=== PATIENT | male | born 1955 | race Caucasian/White ===

== ENCOUNTER 2023-01-13 06:29 | Day surgery (SDC) | payer MEDICARE, OTHER ==
[~2023-01-13 06:29] MED LIST: Lactated Ringers 1,000 ML IV SCH; Midazolam 1 MG/ML 2 ML SDV ONE; Propofol 200 MG/20 ML SDV ONE; Sodium Chloride 0.9% 10 ML Syringe FLUSH PRN; Sodium Chloride 0.9% 10 ML Syringe FLUSH SCH; fentaNYL 100 MCG/2 ML SDV ONE
[2023-01-13] MEDS ORDERED: Ropivacaine 0.5% 5 MG/ML 30 ML SDV ONE ×2 (07:20→08:40)
[2023-01-13] MEDS ORDERED: EPINEPHrine 1 MG/ML SDV ONE ×2 (07:20→08:39)
[2023-01-13] MEDS ORDERED: Phenylephrine 1% 10 MG/ML SDV ONE (07:35)
[2023-01-13] MEDS ORDERED: ceFAZolin 2 GM Vial ONE (07:35)
[2023-01-13] MEDS: Tranexamic Acid 1,000 MG/10 ML Vial ONE ×2 (08:01→08:34)
[2023-01-13] MEDS: Morphine 8 MG, EPINEPHrine 0.3 MG, Cefuroxime 750 MG, Ketorolac 30 MG, Sodium Chloride ... PRN ×10 (08:01→08:28)
[2023-01-13] MEDS: Vancomycin 1 GM SDV ONE ×2 (08:02→08:34)
[2023-01-13] MEDS ORDERED: Ondansetron 4 MG/2 ML SDV ONE (08:25)
[2023-01-13] MEDS ORDERED: Acetaminophen/HYDROcodone 325-5 MG Tab PO PRN (09:09)
== END 2023-01-13 12:10 | disposition home or self-care (01) ==
LOC: JD.SDS 06:29
PROVIDERS: ATTEND Orthopaedic Surgery
DX: M17.12 Unilateral primary osteoarthritis, left knee (principal); G89.29 Other chronic pain; N40.1 Benign prostatic hyperplasia with lower urinary tract symptoms; N13.8 Other obstructive and reflux uropathy; K74.60 Unspecified cirrhosis of liver; K70.10 Alcoholic hepatitis without ascites; F17.210 Nicotine dependence, cigarettes, uncomplicated; Z91.013 Allergy to seafood; Z88.0 Allergy status to penicillin; Z79.899 Other long term (current) drug therapy; Z79.01 Long term (current) use of anticoagulants
CPT/HCPCS: 0055T; 27447; 73560; 97116; 97161; A9270; C1713; C1776; J0171; J0690; J0697; J1885; J2250; J2270; J2370; J2405; J2704; J2795; J3370; J7120; 01402; 64447; J3010; J3490

== ENCOUNTER 2023-03-18 16:24 | Inpatient (IN) | payer MEDICARE, OTHER ==
[2023-03-18] MEDS ORDERED: Sodium Chloride 0.9% 1,000 ML IV STA (17:13)
[2023-03-18] MEDS ORDERED: Acetaminophen/HYDROcodone 325-5 MG Tab PO ONE (17:22)
[2023-03-18] MEDS ORDERED: Iopamidol 755 Mg/ML 100 ML Bottle IVPUSH ONE (18:26)
[2023-03-18] MEDS ORDERED: Sodium Chloride 0.9% 10 ML Syringe FLUSH PRN (18:26)
[2023-03-18] MEDS ORDERED: Sodium Chloride 0.9% 45 ML IV SCH (18:30)
[2023-03-18] MEDS ORDERED: ceFAZolin 2 GM in Sodium Chloride 0.9% 50 ML IV ONE (19:14)
[2023-03-18] MEDS ORDERED: Ondansetron 4 MG/2 ML SDV IV PRN (19:32)
[2023-03-18] MEDS ORDERED: Acetaminophen 325 MG Tab PO PRN (19:32)
[2023-03-18] MEDS ORDERED: VANCOmycin 1.5 GM/300 ML 1.5 GM in Premix Bag 1 BAG IV ONE (20:00)
[2023-03-18] MEDS: ceFAZolin 2 GM in Sodium Chloride 0.9% 50 ML IV SCH (22:11)
[2023-03-19] MEDS: ceFAZolin 2 GM in Sodium Chloride 0.9% 50 ML IV SCH (04:25)
[2023-03-19 05:36] LABS: BASOPHILS ABSOLUTE AUTO 0.1 K/mm3 (0.0-0.2); BASOPHILS PERCENT AUTO 0.9 % (0.0-1.0); EOSINOPHILS ABSOLUTE AUTO 0.2 K/mm3 (0.0-0.4); EOSINOPHILS PERCENT AUTO 2.6 % (0.0-6.0); HEMATOCRIT 27.4 % (42.0-52.0); HEMOGLOBIN 9.5 gm/dl (14.0-18.0); IMMATURE GRAN ABSOLUTE AUTO 0.04 K/mm3 (0.00-0.05); IMMATURE GRAN PERCENT AUTO 0.5 % (0.0-0.4); LYMPHOCYTES ABSOLUTE AUTO 1.9 K/mm3 (1.0-4.8); LYMPHOCYTES PERCENT AUTO 23.4 % (24.0-44.0); MEAN CORPUSCULAR HEMOGLOBIN 30.5 pg (28.0-32.0); MEAN CORPUSCULAR HGB CONC 34.7 g/dl (32.0-36.0); MEAN CORPUSCULAR VOLUME 88.1 fl (83.0-99.0); MEAN PLATELET VOLUME 9.7 fl (9.4-12.4); MONOCYTES ABSOLUTE AUTO 1.2 K/mm3 (0.0-0.8); MONOCYTES PERCENT AUTO 14.4 % (0.0-8.0); NEUTROPHILS ABSOLUTE AUTO 4.8 K/mm3 (1.8-7.7); NEUTROPHILS PERCENT AUTO 58.2 % (41.0-71.0); PLATELET COUNT,PLT 105 K/mm3 (150-400); RED BLOOD CELL COUNT 3.11 M/mm3 (4.52-5.90); WHITE BLOOD CELL COUNT,WBC 8.21 K/mm3 (3.9-11.3)
[2023-03-19 06:02] LABS: A/G RATIO 0.5 (1-2); ALBUMIN 2.2 g/dl (3.4-5.0); ANION GAP 11.5 (5-15); BILIRUBIN TOTAL 1.8 mg/dL (0.2-1.0); BUN/CREATININE RATIO 17.7 (14-18); CALCIUM 8.2 mg/dL (8.5-10.1); CREATININE 1.3 mg/dL (0.7-1.3); EST CRCL DRUG DOSING (CG) 63.17 mL/min; POTASSIUM,K 3.5 mEq/L (3.5-5.1); PROTEIN TOTAL,TP 6.4 g/dl (6.4-8.2)
[2023-03-19 06:16] LABS: C-REACTIVE PROTEIN 12.5 mg/dL (<1.0)
[2023-03-19] MEDS ORDERED: Fluticasone NASAL Spray 16 GM Bottle NASBOTH PRN (08:13)
[2023-03-19] MEDS: cefTRIAXone 2 GM in Sodium Chloride 0.9% 100 ML IV SCH (08:57)
[2023-03-19] MEDS ORDERED: Docusate Sodium 100 MG Cap PO PRN (09:47)
[2023-03-19] MEDS ORDERED: Albuterol/Ipratropium 3.0-0.5 MG/3 ML Neb Soln NEB PRN (10:05)
[2023-03-19] MEDS: Cetirizine 10 MG Tab PO SCH (10:29)
[2023-03-19] MEDS: Pantoprazole 40 MG Tab.CR PO SCH (10:30)
[2023-03-19] MEDS ORDERED: Sodium Chloride 0.9% 1,000 ML IV SCH (10:45)
[2023-03-19] MEDS: Sodium Chloride 1 GM Tab PO ONE ×2 (10:56→11:23)
[2023-03-19] MEDS ORDERED: Sodium Chloride 1 GM Tab PO ONE (11:00)
[2023-03-19] MEDS: Spironolactone 25 MG Tab PO SCH ×2 (11:22→22:16)
[2023-03-19] MEDS: Furosemide 80 MG Tab PO SCH ×2 (11:23→22:16)
[2023-03-19] MEDS: Midodrine 5 MG Tab PO SCH ×2 (11:23→20:18)
[2023-03-19] MEDS ORDERED: Propofol 200 MG/20 ML SDV ONE (13:05)
[2023-03-19] MEDS ORDERED: Midazolam 1 MG/ML 2 ML SDV ONE (13:05)
[2023-03-19] MEDS ORDERED: fentaNYL 100 MCG/2 ML SDV ONE (13:05)
[2023-03-19] MEDS ORDERED: Lidocaine 1% 5 ML VIAL ONE (13:05)
[2023-03-19 13:07] LABS: ANION GAP 14.9 (5-15); BUN/CREATININE RATIO 16.7 (14-18); CALCIUM 8.4 mg/dL (8.5-10.1); CREATININE 1.2 mg/dL (0.7-1.3); EST CRCL DRUG DOSING (CG) 68.43 mL/min; POTASSIUM,K 3.9 mEq/L (3.5-5.1)
[2023-03-19 13:08] LABS: INR 1.16; PROTHROMBIN TIME 12.3 SECONDS (9.7-12.0)
[2023-03-19] MEDS ORDERED: Tranexamic Acid 1,000 MG/10 ML Vial ONE (13:47)
[2023-03-19] MEDS ORDERED: Vancomycin 1 GM SDV ONE (13:48)
[2023-03-19] MEDS ORDERED: ceFAZolin 2 GM Vial ONE (14:25)
[2023-03-19] MEDS ORDERED: Lactated Ringers 1,000 ML ONE (14:26)
[2023-03-19] MEDS ORDERED: Phenylephrine 1% 10 MG/ML SDV ONE (14:29)
[2023-03-19] MEDS ORDERED: Ondansetron 4 MG/2 ML SDV IVPUSH PRN (14:44)
[2023-03-19] MEDS ORDERED: fentaNYL 100 MCG/2 ML SDV IVPUSH PRN (14:44)
[2023-03-19] MEDS ORDERED: HYDROmorphone 0.5 MG/0.5 ML Syringe IVPUSH PRN (14:44)
[2023-03-19] MEDS ORDERED: Dexmedetomidine 200 MCG/2 ML SDV ONE (15:11)
[2023-03-19] MEDS ORDERED: Dexamethasone 4 MG/ML 5 ML MDV ONE (15:50)
[2023-03-19] MEDS ORDERED: EPINEPHrine 1 MG/ML SDV ONE (15:50)
[2023-03-19] MEDS ORDERED: Naloxone 0.4 MG/ML SDV IVPUSH PRN (15:51)
[2023-03-19] MEDS ORDERED: Cyclobenzaprine 10 MG Tab PO PRN (15:51)
[2023-03-19] MEDS ORDERED: Morphine 2 MG/ML SYRINGE IVPUSH PRN (15:51)
[2023-03-19] MEDS ORDERED: Sennosides 8.6 MG Tab PO PRN (15:51)
[2023-03-19] MEDS: oxyCODONE 5 MG Tab PO PRN (20:36)
[2023-03-20 05:57] LABS: BASOPHILS PERCENT AUTO 0.3 % (0.0-1.0); HEMATOCRIT 27.8 % (42.0-52.0); HEMOGLOBIN 9.7 gm/dl (14.0-18.0); IMMATURE GRAN ABSOLUTE AUTO 0.06 K/mm3 (0.00-0.05); IMMATURE GRAN PERCENT AUTO 0.8 % (0.0-0.4); MEAN CORPUSCULAR HEMOGLOBIN 31.1 pg (28.0-32.0); MEAN CORPUSCULAR HGB CONC 34.9 g/dl (32.0-36.0); MEAN CORPUSCULAR VOLUME 89.1 fl (83.0-99.0); MONOCYTES ABSOLUTE AUTO 0.5 K/mm3 (0.0-0.8); MONOCYTES PERCENT AUTO 5.9 % (0.0-8.0); NEUTROPHILS ABSOLUTE AUTO 6.4 K/mm3 (1.8-7.7); PLATELET COUNT,PLT 119 K/mm3 (150-400); RED BLOOD CELL COUNT 3.12 M/mm3 (4.52-5.90); WHITE BLOOD CELL COUNT,WBC 7.92 K/mm3 (3.9-11.3)
[2023-03-20 06:03] LABS: A/G RATIO 0.5 (1-2); ALBUMIN 2.2 g/dl (3.4-5.0); ANION GAP 12.9 (5-15); BILIRUBIN TOTAL 1.3 mg/dL (0.2-1.0); BUN/CREATININE RATIO 14.5 (14-18); CREATININE 1.1 mg/dL (0.7-1.3); EST CRCL DRUG DOSING (CG) 74.65 mL/min; MAGNESIUM 1.9 mg/dL (1.8-2.4); POTASSIUM,K 3.9 mEq/L (3.5-5.1); PROTEIN TOTAL,TP 6.6 g/dl (6.4-8.2)
[2023-03-20] MEDS: oxyCODONE 5 MG Tab PO PRN ×2 (06:43→22:37)
[2023-03-20 06:44] LABS: C-REACTIVE PROTEIN 12.2 mg/dL (<1.0)
[2023-03-20] MEDS ORDERED: Sodium Chloride 0.9% 1,000 ML IV SCH (07:30)
[2023-03-20] MEDS ORDERED: Ropivacaine 0.5% 5 MG/ML 30 ML SDV ONE (07:31)
[2023-03-20] MEDS: Spironolactone 25 MG Tab PO SCH ×2 (09:54→20:29)
[2023-03-20] MEDS: Cetirizine 10 MG Tab PO SCH (09:54)
[2023-03-20] MEDS: Pantoprazole 40 MG Tab.CR PO SCH (09:54)
[2023-03-20] MEDS: Aspirin 325 MG Tab.EC PO SCH (09:54)
[2023-03-20] MEDS: Furosemide 80 MG Tab PO SCH ×2 (09:54→20:30)
[2023-03-20] MEDS: Midodrine 5 MG Tab PO SCH ×2 (09:54→20:29)
[2023-03-20] MEDS: cefTRIAXone 2 GM in Sodium Chloride 0.9% 100 ML IV SCH (09:55)
[2023-03-21 05:45] LABS: BASOPHILS PERCENT AUTO 0.4 % (0.0-1.0); HEMOGLOBIN 10.1 gm/dl (14.0-18.0); IMMATURE GRAN ABSOLUTE AUTO 0.08 K/mm3 (0.00-0.05); IMMATURE GRAN PERCENT AUTO 0.7 % (0.0-0.4); LYMPHOCYTES ABSOLUTE AUTO 1.7 K/mm3 (1.0-4.8); LYMPHOCYTES PERCENT AUTO 15.4 % (24.0-44.0); MEAN CORPUSCULAR HEMOGLOBIN 31.3 pg (28.0-32.0); MEAN CORPUSCULAR HGB CONC 34.8 g/dl (32.0-36.0); MEAN CORPUSCULAR VOLUME 89.8 fl (83.0-99.0); MEAN PLATELET VOLUME 9.7 fl (9.4-12.4); MONOCYTES ABSOLUTE AUTO 0.9 K/mm3 (0.0-0.8); MONOCYTES PERCENT AUTO 7.7 % (0.0-8.0); NEUTROPHILS ABSOLUTE AUTO 8.3 K/mm3 (1.8-7.7); NEUTROPHILS PERCENT AUTO 75.8 % (41.0-71.0); PLATELET COUNT,PLT 173 K/mm3 (150-400); RED BLOOD CELL COUNT 3.23 M/mm3 (4.52-5.90); WHITE BLOOD CELL COUNT,WBC 10.97 K/mm3 (3.9-11.3)
[2023-03-21 05:47] LABS: A/G RATIO 0.5 (1-2); ALBUMIN 2.4 g/dl (3.4-5.0); ANION GAP 14.6 (5-15); BUN/CREATININE RATIO 15.8 (14-18); C-REACTIVE PROTEIN 7.8 mg/dL (<1.0); CALCIUM 9.1 mg/dL (8.5-10.1); CREATININE 1.2 mg/dL (0.7-1.3); EST CRCL DRUG DOSING (CG) 68.43 mL/min; POTASSIUM,K 3.6 mEq/L (3.5-5.1)
[2023-03-21] MEDS: Furosemide 80 MG Tab PO SCH ×2 (06:10→15:36)
[2023-03-21] MEDS: oxyCODONE 5 MG Tab PO PRN ×2 (06:21→18:29)
[2023-03-21] MEDS: Spironolactone 25 MG Tab PO SCH ×2 (08:38→20:25)
[2023-03-21] MEDS: Pantoprazole 40 MG Tab.CR PO SCH (08:38)
[2023-03-21] MEDS: Aspirin 325 MG Tab.EC PO SCH (08:38)
[2023-03-21] MEDS: Cetirizine 10 MG Tab PO SCH (08:38)
[2023-03-21] MEDS: cefTRIAXone 2 GM in Sodium Chloride 0.9% 100 ML IV SCH (08:38)
[2023-03-21] MEDS: Midodrine 5 MG Tab PO SCH ×2 (08:38→20:25)
[2023-03-22] MEDS: Furosemide 80 MG Tab PO SCH ×2 (05:38→14:37)
[2023-03-22 05:56] LABS: BASOPHILS ABSOLUTE AUTO 0.1 K/mm3 (0.0-0.2); EOSINOPHILS ABSOLUTE AUTO 0.2 K/mm3 (0.0-0.4); HEMATOCRIT 27.4 % (42.0-52.0); HEMOGLOBIN 9.5 gm/dl (14.0-18.0); IMMATURE GRAN ABSOLUTE AUTO 0.08 K/mm3 (0.00-0.05); IMMATURE GRAN PERCENT AUTO 0.9 % (0.0-0.4); LYMPHOCYTES ABSOLUTE AUTO 2.6 K/mm3 (1.0-4.8); LYMPHOCYTES PERCENT AUTO 30.1 % (24.0-44.0); MEAN CORPUSCULAR HGB CONC 34.7 g/dl (32.0-36.0); MEAN CORPUSCULAR VOLUME 89.5 fl (83.0-99.0); MEAN PLATELET VOLUME 9.4 fl (9.4-12.4); MONOCYTES ABSOLUTE AUTO 1.2 K/mm3 (0.0-0.8); MONOCYTES PERCENT AUTO 13.7 % (0.0-8.0); NEUTROPHILS ABSOLUTE AUTO 4.5 K/mm3 (1.8-7.7); NEUTROPHILS PERCENT AUTO 52.3 % (41.0-71.0); PLATELET COUNT,PLT 171 K/mm3 (150-400); RED BLOOD CELL COUNT 3.06 M/mm3 (4.52-5.90); WHITE BLOOD CELL COUNT,WBC 8.64 K/mm3 (3.9-11.3)
[2023-03-22 06:04] LABS: A/G RATIO 0.5 (1-2); ALBUMIN 2.3 g/dl (3.4-5.0); ANION GAP 12.5 (5-15); BILIRUBIN TOTAL 0.9 mg/dL (0.2-1.0); BUN/CREATININE RATIO 15.5 (14-18); C-REACTIVE PROTEIN 4.1 mg/dL (<1.0); CALCIUM 8.5 mg/dL (8.5-10.1); CREATININE 1.1 mg/dL (0.7-1.3); EST CRCL DRUG DOSING (CG) 74.65 mL/min; MAGNESIUM 1.7 mg/dL (1.8-2.4); POTASSIUM,K 3.5 mEq/L (3.5-5.1); PROTEIN TOTAL,TP 6.7 g/dl (6.4-8.2)
[2023-03-22] MEDS: Aspirin 325 MG Tab.EC PO SCH (08:47)
[2023-03-22] MEDS: Spironolactone 25 MG Tab PO SCH ×2 (08:47→20:03)
[2023-03-22] MEDS: Cetirizine 10 MG Tab PO SCH (08:49)
[2023-03-22] MEDS: Pantoprazole 40 MG Tab.CR PO SCH (08:49)
[2023-03-22] MEDS: Midodrine 5 MG Tab PO SCH ×2 (08:49→20:03)
[2023-03-22] MEDS: cefTRIAXone 2 GM in Sodium Chloride 0.9% 100 ML IV SCH (08:51)
[2023-03-22] MEDS: oxyCODONE 5 MG Tab PO PRN (09:19)
[2023-03-23] MEDS: Furosemide 80 MG Tab PO SCH ×2 (05:45→13:08)
[2023-03-23 05:48] LABS: BASOPHILS ABSOLUTE AUTO 0.1 K/mm3 (0.0-0.2); BASOPHILS PERCENT AUTO 1.3 % (0.0-1.0); EOSINOPHILS ABSOLUTE AUTO 0.3 K/mm3 (0.0-0.4); EOSINOPHILS PERCENT AUTO 4.2 % (0.0-6.0); HEMATOCRIT 27.1 % (42.0-52.0); HEMOGLOBIN 9.5 gm/dl (14.0-18.0); IMMATURE GRAN ABSOLUTE AUTO 0.11 K/mm3 (0.00-0.05); IMMATURE GRAN PERCENT AUTO 1.4 % (0.0-0.4); LYMPHOCYTES ABSOLUTE AUTO 2.3 K/mm3 (1.0-4.8); LYMPHOCYTES PERCENT AUTO 28.8 % (24.0-44.0); MEAN CORPUSCULAR HGB CONC 35.1 g/dl (32.0-36.0); MEAN CORPUSCULAR VOLUME 88.6 fl (83.0-99.0); MEAN PLATELET VOLUME 9.3 fl (9.4-12.4); MONOCYTES ABSOLUTE AUTO 0.9 K/mm3 (0.0-0.8); MONOCYTES PERCENT AUTO 10.9 % (0.0-8.0); NEUTROPHILS ABSOLUTE AUTO 4.2 K/mm3 (1.8-7.7); NEUTROPHILS PERCENT AUTO 53.4 % (41.0-71.0); PLATELET COUNT,PLT 170 K/mm3 (150-400); RED BLOOD CELL COUNT 3.06 M/mm3 (4.52-5.90); WHITE BLOOD CELL COUNT,WBC 7.88 K/mm3 (3.9-11.3)
[2023-03-23 06:15] LABS: A/G RATIO 0.5 (1-2); ALBUMIN 2.3 g/dl (3.4-5.0); ANION GAP 11.7 (5-15); BUN/CREATININE RATIO 14.2 (14-18); C-REACTIVE PROTEIN 2.7 mg/dL (<1.0); CALCIUM 8.3 mg/dL (8.5-10.1); CREATININE 1.2 mg/dL (0.7-1.3); EST CRCL DRUG DOSING (CG) 68.43 mL/min; MAGNESIUM 1.7 mg/dL (1.8-2.4); POTASSIUM,K 3.7 mEq/L (3.5-5.1); PROTEIN TOTAL,TP 6.7 g/dl (6.4-8.2)
[2023-03-23] MEDS: Aspirin 325 MG Tab.EC PO SCH (08:07)
[2023-03-23] MEDS: Midodrine 5 MG Tab PO SCH ×2 (08:07→20:08)
[2023-03-23] MEDS: Pantoprazole 40 MG Tab.CR PO SCH (08:07)
[2023-03-23] MEDS: cefTRIAXone 2 GM in Sodium Chloride 0.9% 100 ML IV SCH (08:07)
[2023-03-23] MEDS: Cetirizine 10 MG Tab PO SCH (08:07)
[2023-03-23] MEDS: Spironolactone 25 MG Tab PO SCH ×2 (08:08→20:08)
[2023-03-23] MEDS: oxyCODONE 5 MG Tab PO PRN ×2 (13:07→22:23)
[2023-03-24] MEDS: Furosemide 80 MG Tab PO SCH ×2 (06:04→14:38)
[2023-03-24] MEDS: cefTRIAXone 2 GM in Sodium Chloride 0.9% 100 ML IV SCH (08:54)
[2023-03-24] MEDS: Pantoprazole 40 MG Tab.CR PO SCH (08:55)
[2023-03-24] MEDS: Aspirin 325 MG Tab.EC PO SCH (08:55)
[2023-03-24] MEDS: Spironolactone 25 MG Tab PO SCH ×2 (08:55→20:56)
[2023-03-24] MEDS: Midodrine 5 MG Tab PO SCH ×2 (08:55→20:56)
[2023-03-24] MEDS: Cetirizine 10 MG Tab PO SCH (08:55)
[2023-03-24] MEDS: oxyCODONE 5 MG Tab PO PRN (17:51)
[2023-03-25] MEDS: oxyCODONE 5 MG Tab PO PRN ×2 (01:34→12:12)
[2023-03-25 05:33] LABS: BASOPHILS ABSOLUTE AUTO 0.1 K/mm3 (0.0-0.2); BASOPHILS PERCENT AUTO 1.2 % (0.0-1.0); EOSINOPHILS ABSOLUTE AUTO 0.5 K/mm3 (0.0-0.4); EOSINOPHILS PERCENT AUTO 4.7 % (0.0-6.0); HEMATOCRIT 29.9 % (42.0-52.0); HEMOGLOBIN 10.4 gm/dl (14.0-18.0); IMMATURE GRAN ABSOLUTE AUTO 0.15 K/mm3 (0.00-0.05); IMMATURE GRAN PERCENT AUTO 1.4 % (0.0-0.4); LYMPHOCYTES PERCENT AUTO 27.3 % (24.0-44.0); MEAN CORPUSCULAR HEMOGLOBIN 31.1 pg (28.0-32.0); MEAN CORPUSCULAR HGB CONC 34.8 g/dl (32.0-36.0); MEAN CORPUSCULAR VOLUME 89.5 fl (83.0-99.0); MEAN PLATELET VOLUME 9.1 fl (9.4-12.4); MONOCYTES ABSOLUTE AUTO 1.2 K/mm3 (0.0-0.8); MONOCYTES PERCENT AUTO 10.8 % (0.0-8.0); NEUTROPHILS ABSOLUTE AUTO 5.9 K/mm3 (1.8-7.7); NEUTROPHILS PERCENT AUTO 54.6 % (41.0-71.0); PLATELET COUNT,PLT 200 K/mm3 (150-400); RED BLOOD CELL COUNT 3.34 M/mm3 (4.52-5.90); WHITE BLOOD CELL COUNT,WBC 10.84 K/mm3 (3.9-11.3)
[2023-03-25 05:40] LABS: A/G RATIO 0.5 (1-2); ALBUMIN 2.5 g/dl (3.4-5.0); ANION GAP 12.1 (5-15); BILIRUBIN TOTAL 1.2 mg/dL (0.2-1.0); BUN/CREATININE RATIO 12.7 (14-18); C-REACTIVE PROTEIN 2.4 mg/dL (<1.0); CALCIUM 8.5 mg/dL (8.5-10.1); CREATININE 1.1 mg/dL (0.7-1.3); EST CRCL DRUG DOSING (CG) 74.65 mL/min; POTASSIUM,K 4.1 mEq/L (3.5-5.1); PROTEIN TOTAL,TP 7.4 g/dl (6.4-8.2)
[2023-03-25] MEDS: Furosemide 80 MG Tab PO SCH ×2 (06:24→14:02)
[2023-03-25] MEDS: cefTRIAXone 2 GM in Sodium Chloride 0.9% 100 ML IV SCH (08:40)
[2023-03-25] MEDS: Spironolactone 25 MG Tab PO SCH ×2 (08:43→21:11)
[2023-03-25] MEDS: Midodrine 5 MG Tab PO SCH ×2 (08:43→21:12)
[2023-03-25] MEDS: Cetirizine 10 MG Tab PO SCH (08:43)
[2023-03-25] MEDS: Pantoprazole 40 MG Tab.CR PO SCH (08:43)
[2023-03-25] MEDS: Aspirin 325 MG Tab.EC PO SCH (08:43)
[2023-03-26] MEDS: oxyCODONE 5 MG Tab PO PRN ×2 (02:44→13:29)
[2023-03-26] MEDS: Furosemide 80 MG Tab PO SCH ×2 (06:55→13:27)
[2023-03-26] MEDS: Spironolactone 25 MG Tab PO SCH (08:23)
[2023-03-26] MEDS: cefTRIAXone 2 GM in Sodium Chloride 0.9% 100 ML IV SCH (08:23)
[2023-03-26] MEDS: Aspirin 325 MG Tab.EC PO SCH (08:23)
[2023-03-26] MEDS: Cetirizine 10 MG Tab PO SCH (08:24)
[2023-03-26] MEDS: Pantoprazole 40 MG Tab.CR PO SCH (08:24)
[2023-03-26] MEDS: Midodrine 5 MG Tab PO SCH (08:24)
== END 2023-03-26 16:12 | disposition home or self-care (01) | DRG 486 ==
LOC: JD.ED 16:24 → JD.MS 19:29
PROVIDERS: ADMIT Orthopaedic Surgery; ATTEND Orthopaedic Surgery
PROC: 0SBD4ZZ Excision of Left Knee Joint, Percutaneous Endoscopic Approach (ICD-10-PCS; principal; 2023-03-19)
PROC: 02HV33Z Insertion of Infusion Device into Superior Vena Cava, Percutaneous Approach (ICD-10-PCS; 2023-03-26)
DX: T84.54XA Infection and inflammatory reaction due to internal left knee prosthesis, initial encounter (principal); E87.1 Hypo-osmolality and hyponatremia; R78.81 Bacteremia; T84.50XA Infection and inflammatory reaction due to unspecified internal joint prosthesis, initial encounter; M19.90 Unspecified osteoarthritis, unspecified site; Z20.822 Contact with and (suspected) exposure to COVID-19; K74.60 Unspecified cirrhosis of liver; F17.210 Nicotine dependence, cigarettes, uncomplicated; J43.8 Other emphysema; K21.9 Gastro-esophageal reflux disease without esophagitis; B95.61 Methicillin susceptible Staphylococcus aureus infection as the cause of diseases classified elsewhere; Z88.0 Allergy status to penicillin; Z91.013 Allergy to seafood; N40.0 Benign prostatic hyperplasia without lower urinary tract symptoms; Z87.01 Personal history of pneumonia (recurrent); Z79.899 Other long term (current) drug therapy; Z96.652 Presence of left artificial knee joint; Y83.1 Surgical operation with implant of artificial internal device as the cause of abnormal reaction of the patient, or of later complication, without mention of misadventure at the time of the procedure
CPT/HCPCS: 71275; 87040 ×2; 87077; 87154; 87186; 87804 ×2; 93005; 99285; A9270; J3490; J7030; Q9967; 01402; 36415; 36569; 64447; 80048; 80053; 80202; 83735; 85025; 85610; 86140; 87641; 93010; 93307; 94640; 94761; 94762; 97161-GP; 99222; 99231; 99232; 99284; C1713; C1751; C1776; J0171; J0690; J0696; J1100; J2250; J2370; J2704; J2795; J3010; J3370; J7050; J7120; J7620-GY

== ENCOUNTER 2024-07-06 16:00 | Emergency (ER) | payer MEDICARE, OTHER ==
[2024-07-06] MEDS: Iopamidol 755 Mg/ML 100 ML Bottle IVPUSH ONE (16:21)
[2024-07-06] MEDS: Sodium Chloride 0.9% 100 ML IV SCH (16:21)
[2024-07-06] MEDS: Sodium Chloride 0.9% 10 ML Syringe FLUSH PRN (16:22)
[2024-07-06 16:23] LABS: BASOPHILS ABSOLUTE AUTO 0.1 K/mm3 (0.0-0.2); BASOPHILS PERCENT AUTO 2.5 % (0.0-1.0); EOSINOPHILS PERCENT AUTO 0.7 % (0.0-6.0); HEMATOCRIT 36.7 % (42.0-52.0); HEMOGLOBIN 11.8 gm/dl (14.0-18.0); IMMATURE GRAN ABSOLUTE AUTO 0.01 K/mm3 (0.00-0.05); IMMATURE GRAN PERCENT AUTO 0.2 % (0.0-0.4); LYMPHOCYTES ABSOLUTE AUTO 1.3 K/mm3 (1.0-4.8); LYMPHOCYTES PERCENT AUTO 29.8 % (24.0-44.0); MEAN CORPUSCULAR HEMOGLOBIN 29.6 pg (28.0-32.0); MEAN CORPUSCULAR HGB CONC 32.2 g/dl (32.0-36.0); MEAN CORPUSCULAR VOLUME 92.2 fl (83.0-99.0); MEAN PLATELET VOLUME 10.3 fl (9.4-12.4); MONOCYTES ABSOLUTE AUTO 0.5 K/mm3 (0.0-0.8); MONOCYTES PERCENT AUTO 12.2 % (0.0-8.0); NEUTROPHILS ABSOLUTE AUTO 2.4 K/mm3 (1.8-7.7); NEUTROPHILS PERCENT AUTO 54.6 % (41.0-71.0); PLATELET COUNT,PLT 84 K/mm3 (150-400); RED BLOOD CELL COUNT 3.98 M/mm3 (4.52-5.90); WHITE BLOOD CELL COUNT,WBC 4.36 K/mm3 (3.9-11.3)
[2024-07-06 16:47] LABS: A/G RATIO 0.4 (1-2); ALANINE AMINOTRANSFERASE,ALT 32 U/L (16-63); ALBUMIN 2.2 g/dl (3.4-5.0); ALKALINE PHOSPHATASE 212 U/L (46-116); ANION GAP 16.6 (5-15); ASPARTATE AMNIOTRANSFERASE,AST 159 U/L (15-37); BILIRUBIN TOTAL 5.8 mg/dL (0.2-1.0); BLOOD UREA NITROGEN,BUN 5 mg/dL (7-18); BUN/CREATININE RATIO 5.6 (14-18); CALCIUM 7.6 mg/dL (8.5-10.1); CARBON DIOXIDE,CO2 22 mEq/L (21-32); CHLORIDE,CL 99 mEq/L (98-107); ESTIMATED GFR 93 mL/min (>60); GLUCOSE RANDOM 129 mg/dL (70-99); SODIUM,NA 135 mEq/L (136-145)
[2024-07-06 16:51] LABS: POTASSIUM,K 2.6 mEq/L (3.5-5.1); TROPONIN I HIGH SENSITIVITY 259 pg/mL (<=76)
[2024-07-06 16:52] LABS: CREATININE 0.9 mg/dL (0.7-1.3); PROTEIN TOTAL,TP 7.2 g/dl (6.4-8.2)
[2024-07-06] MEDS: Potassium Chloride 10 MEQ in Premix Bag 1 BAG IV SCH (17:47)
[2024-07-06] MEDS: Potassium Chloride 20 MEQ Tab.ER PO ONE (17:48)
[2024-07-06] MEDS: Sodium Chloride 0.9% 1,000 ML IV ONE (17:48)
[2024-07-06] MEDS: Aspirin 81 MG Tab.Chew PO SCH (17:49)
[2024-07-06 20:43] LABS: ANION GAP 12.8 (5-15); BLOOD UREA NITROGEN,BUN 4 mg/dL (7-18); CALCIUM 7.4 mg/dL (8.5-10.1); CARBON DIOXIDE,CO2 25 mEq/L (21-32); CHLORIDE,CL 101 mEq/L (98-107); CREATININE 0.8 mg/dL (0.7-1.3); ESTIMATED GFR 96 mL/min (>60); GLUCOSE RANDOM 97 mg/dL (70-99); POTASSIUM,K 2.8 mEq/L (3.5-5.1); SODIUM,NA 136 mEq/L (136-145)
[2024-07-06 20:49] LABS: TROPONIN I HIGH SENSITIVITY 263 pg/mL (<=76)
[2024-07-06] MEDS: Morphine 2 MG/ML SYRINGE IVPUSH ONE (23:59)
[2024-07-07 03:37] LABS: APPEARANCE,URINE CLEAR (Clear); COLOR,URINE DARK YELLOW (Yellow)
[2024-07-07 03:38] LABS: PH,URINE 6.5 (5.0-8.0); PROTEIN,URINE TRACE (Negative)
[2024-07-07 03:40] LABS: BILIRUBIN,URINE 2+ (Negative); GLUCOSE,URINE NEGATIVE (Negative); KETONES,URINE TRACE (Negative)
[2024-07-07 03:41] LABS: LEUKOCYTE ESTERASE,URINE NEGATIVE (Negative); NITRITE,URINE NEGATIVE (Negative); OCCULT BLOOD,URINE NEGATIVE (Negative); UROBILINOGEN,URINE >=8.0 (0.2-1.0)
[2024-07-07 03:42] LABS: BACTERIA,URINE RARE /hpf (FEW); EPITHELIAL CELLS,URINE 0-5 /hpf (0-5); MUCUS,URINE NOT SEEN /hpf (FEW); RBC,URINE NOT SEEN /hpf (0-5); WBC,URINE 0-5 /hpf (0-5)
[2024-07-07 03:43] LABS: AMORPHOUS SEDIMENT,URINE RARE /hpf (NOT SEEN)
[2024-07-07 04:31] LABS: A/G RATIO 0.5 (1-2); ALANINE AMINOTRANSFERASE,ALT 30 U/L (16-63); ALBUMIN 1.9 g/dl (3.4-5.0); ALKALINE PHOSPHATASE 176 U/L (46-116); ANION GAP 11.9 (5-15); ASPARTATE AMNIOTRANSFERASE,AST 157 U/L (15-37); BLOOD UREA NITROGEN,BUN 4 mg/dL (7-18); BUN/CREATININE RATIO 5.7 (14-18); CALCIUM 7.2 mg/dL (8.5-10.1); CARBON DIOXIDE,CO2 25 mEq/L (21-32); CHLORIDE,CL 103 mEq/L (98-107); CREATININE 0.7 mg/dL (0.7-1.3); ESTIMATED GFR 100 mL/min (>60); ETHANOL BLOOD MEDICAL 0.25 gm% (0.00); GLUCOSE RANDOM 84 mg/dL (70-99); POTASSIUM,K 2.9 mEq/L (3.5-5.1); PROTEIN TOTAL,TP 6.1 g/dl (6.4-8.2); SODIUM,NA 137 mEq/L (136-145)
[2024-07-07 04:40] LABS: TROPONIN I HIGH SENSITIVITY 251 pg/mL (<=76)
[2024-07-07] MEDS: Morphine 4 MG/ML Syringe IVPUSH ONE (08:53)
[2024-07-07] MEDS: Alum Hydrox/Mag Hydrox/Simeth 30 ML, Lidocaine 2% 15 ML PO ONE (09:01)
[2024-07-07] MEDS: Pantoprazole 40 MG Vial IVPUSH ONE (09:01)
== END 2024-07-07 09:30 ==
LOC: JD.ED 16:00
DX: I21.4 Non-ST elevation (NSTEMI) myocardial infarction (principal); R55 Syncope and collapse; R79.89 Other specified abnormal findings of blood chemistry; M19.90 Unspecified osteoarthritis, unspecified site; Z88.0 Allergy status to penicillin; Z91.013 Allergy to seafood; Z79.82 Long term (current) use of aspirin; Z79.899 Other long term (current) drug therapy
CPT/HCPCS: 36415; 70450; 70496; 70498; 71045; 80048; 80053; 80307; 81001; 83735; 84484; 85025; 93005; 96361; 96365; 96366; 96375; 96376; 99285; A9270; J2270; J2470; J3480; J3490; J7030; Q9967